=== PATIENT | female | born 1995 | race Caucasian/White ===

== ENCOUNTER 2018-04-07 13:55 | Inpatient (IN) | payer BC, OTHER ==
[~2018-04-07] VITALS: Ht 167.6 cm; Wt 79.0 kg
[2018-04-07] VITALS (41 sets, daily range): BP systolic 96–123; BP diastolic 56–86; PULSE 79–106; RESP 17; TEMP 98.3; O2SAT 97–100
[~2018-04-07 13:55] MED LIST: ATOM25 PO; FLUO-1 PO
[2018-04-07] MEDS ORDERED: LACTATED RINGER'S 1000 ML INJ 1,000 ML IV PRN (14:32)
--- NOTE | 2018-04-07 14:39 | HHI.HP ---
HPI Chief Complaint Cindy sanches Date Seen: Apr 07, 2018 Time Seen: 14:33 Travel History International Travel<30 Days: No Contact w/Intl Traveler<30Days: No Known Affected Area: No History of Present Illness HPI Patient is 22-year-old white female G 4 P3 36--37 weeks who presents with spontaneous rupture the membranes. Patient has gross rupture of clear fluid in the OB ED and amni sure is positive. Patient NST is reactive and she is omid irregularly and mildly at this time. Patient gets her care in [place] and was here in town visiting relatives Weeks Gestation: 36 Para: 3 : 4 History Obstetric History Obstetric History 3 vaginal deliveries at term Social History Alcohol Use: No Tobacco Use: No Substance Abuse: No Allergies-Medications (Allergen,Severity, Reaction): Coded Allergies: erythromycin base (Unverified Allergy, Mild, 06/12/17) Home Meds Reported Medications Fluoxetine Hcl (Prozac) 10 Mg Cap, 10 MG PO DAILY 03/14/11 Atomoxetine Hydrochloride (Strattera) 25 Mg Cap, 25 MG PO DAILY 03/10/11 Review of Systems General / Constitutional: No: Fever, Weight Gain, Chills, Other Eyes: No: Diploplia, Blurred Vision, Visual changes, Pain, Photophobia HENT: No: Headaches, Vertigo, Lightheadedness Cardiovascular: No: Irregular Rhythm, Chest Pain or Discomfort, Palpitations, Tachycardia, Syncope, Varicosities, Edema, Cyanosis Respiratory: No: Cough, Short of Breath, Other Gastrointestinal: No: Nausea, Vomiting, Diarrhea Genitourinary: No: Decreased Urinary Output, Oliguria Musculoskeletal: No: Limited ROM, Weakness, Cramping, Edema, Pain Skin: No Rash, No Itching, No Dryness, No Lumps, No Change in Pigmentation, No Change in Nails, No Alopecia, No Lesions Neurologic: No: Weakness, Dizziness, Syncope, Focal Abnormalities, Coordination Problem, Headache, Slurred Speech, Seizures Psychiatric: No: Depression, Suicidal Ideations, Homicidal Ideation Endocrine: No: Heat Intolerance, Cold Intolerance, Polydipsia, Polyuria, Other Physical Exam Narrative GENERAL: Well-nourished, well-developed patient. SKIN: Warm and dry. HEAD: Normocephalic and atraumatic. EYES: No scleral icterus. No injection or drainage. ENT: No nasal drainage noted. Mucous membranes pink. Airway patent. NECK: Supple, trachea midline. No JVD. CARDIOVASCULAR: Regular rate and rhythm without murmurs, gallops, or rubs. RESPIRATORY: Breath sounds equal bilaterally. No accessory muscle use. BREASTS: Bilateral exam showed no masses , no retractions, no nipple discharge. ABDOMEN/GI: Abdomen soft, non-tender, bowel sounds present, no rebound, no guarding Gravid to [-36] weeks size Fundal Height: [36-] GENITOURINARY: External Genitalia: intact and normal in appearance Cervix: [1-] Dilatation:3 Effacement: [70-] Station: [0-] Presentation: [vtx-] Membranes: [ ruptured] Uterine Contractions: [irreg-] FHT's: Category: [1-] Baseline: [-133] Reactive: [-R] Variability: [mod-] Decels: [-0] EXTREMITIES: No cyanosis or edema. BACK: Nontender without obvious deformity. No CVA tenderness. NEUROLOGICAL: Awake and alert. Motor and sensory grossly within normal limits. Five out of 5 muscle strength in all muscle groups. Normal speech. Caprini VTE Risk Assessment Caprini VTE Risk Assessment: No/Low Risk (score <= 1) Caprini Risk Assessment Model Point Value = 1 Point Value = 2 Point Value = 3 Point Value = 5 Age 41-60 Minor surgery BMI > 25 kg/m2 Swollen legs Varicose veins or History of unexplained or recurrent spontaneous Oral contraceptives or hormone replacement Sepsis (< 1 month) Serious lung disease, including pneumonia (< 1 month) Abnormal pulmonary function Acute myocardial infarction Congestive heart failure (< 1 month) History of inflammatory bowel disease Medical patient at bed rest Age 61-74 Arthroscopic surgery Major open surgery (> 45 min) Laparoscopic surgery (> 45 min) Malignancy Confined to bed (> 72 hours) Immobilizing plaster cast Central venous access Age >= 75 History of VTE Family history of VTE Factor V Leiden Prothrombin [id number] Lupus anticoagulant Anticardiolipin antibodies Elevated serum homocysteine Heparin-induced thrombocytopenia Other congenital or acquired thrombophilia Stroke (< 1 month) Elective arthroplasty Hip, pelvis, or leg fracture Acute spinal cord injury (< 1 month) Prophylaxis Regimen Total Risk Factor Score Risk Level Prophylaxis Regimen 0-1 Low Early ambulation 2 Moderate Order ONE of the following: *Sequential Compression Device (SCD) *Heparin 5000 units SQ BID 3-4 Higher Order ONE of the following medications: *Heparin 5000 units SQ TID *Enoxaparin/Lovenox 40 mg SQ daily (WT < 150 kg, CrCl > 30 mL/min) *Enoxaparin/Lovenox 30 mg SQ daily (WT < 150 kg, CrCl > 10-29 mL/min) *Enoxaparin/Lovenox 30 mg SQ BID (WT < 150 kg, CrCl > 30 mL/min) AND/OR *Sequential Compression Device (SCD) 5 or more Highest Order ONE of the following medications: *Heparin 5000 units SQ TID (Preferred with Epidurals) *Enoxaparin/Lovenox 40 mg SQ daily (WT < 150 kg, CrCl > 30 mL/min) *Enoxaparin/Lovenox 30 mg SQ daily (WT < 150 kg, CrCl > 10-29 mL/min) *Enoxaparin/Lovenox 30 mg SQ BID (WT < 150 kg, CrCl > 30 mL/min) AND *Sequential Compression Device (SCD) Data Data Orders Orders Admit To Inpatient (04/07/18 ) Vital Signs (Adult) .Per protocol (04/07/18 14:32) Heart (04/07/18 14:32) Amnioinfusion (04/07/18 14:32) Urinary Catheter Management .ONCE (04/07/18 14:32) Diet Liquid (04/07/18 Dinner) Lactated Ringer's 1000 Ml Inj (Lr 1000 M (04/07/18 14:32) Lactated Ringer's 1000 Ml Inj (Lr 1000 M (04/07/18 14:32) Sodium Chlorid 0.9% 500 Ml Inj (Ns 500 M (04/07/18 14:45) Sodium Chlor 0.9% 1000 Ml Inj (Ns 1000 M (04/07/18 14:52) Lidocaine 1% Inj (50 Ml) (Xylocaine 1% I (04/07/18 14:45) Citric Acid-Sodium Citrate Liq (Bicitra (04/07/18 14:45) Fentanyl Inj (Fentanyl Inj) (04/07/18 14:45) Fentanyl Inj (Fentanyl Inj) (04/07/18 14:45) Penicillin G Potassium Inj (Pfizerpen-G (04/07/18 14:45) Penicillin G Potassium Inj (Pfizerpen-G (04/07/18 18:45) Complete Blood Count With Diff (04/07/18 14:32) Hold Clot (04/07/18 14:32) Abo/Rh Blood Type (04/07/18 14:32) Urinalysis - C+S If Indicated (04/07/18 14:32) Drug Screen, Random Urine (04/07/18 14:32) Ob/Psych Drug Screen, Urine (04/07/18 14:32) Resp Oxygen Non Rebreathe Mask (04/07/18 ) ^ Epidural / Intrathecal Infus (04/07/18 14:32) Oxytocin 30 Units-500ml Premix (Pitocin (04/07/18 14:45) Lidocaine 1% Inj (50 Ml) (Xylocaine 1% I (04/07/18 14:45) Light Mineral Oil (Muri-Lube Oil) (04/07/18 14:45) Labs amnisure pos GBS cult not done Assessment/Plan Assessment and Plan Impression--36-37 week SROM reactive NST Plan-mid to labor and delivery, augment labor, anticipate vaginal delivery, provide IV penicillin due to unknown GBS status and prematurity Jaden Madrid II, MD Apr 07, 2018 14:39
[2018-04-07] MEDS ORDERED: LIDOCAINE HCL 1% 50 ML VIAL INFIL PRN (14:45)
[2018-04-07] MEDS ORDERED: SODIUM CHLORID 0.9% 500 ML INJ 500 ML IV PRN (14:45)
[2018-04-07] MEDS ORDERED: OXYTOCIN 30 UNITS-500ML PREMIX 500 ML IV PRN (14:45)
[2018-04-07] MEDS ORDERED: CITRIC ACID-SODIUM CITRATE LIQ 30 ML UDC PO SCH (14:45)
[2018-04-07] MEDS ORDERED: PENICILLIN G POTASSIUM INJ 5,000,000 UNITS in SODIUM CHLORIDE 0.9% INJ 100 ML IV ONE (14:45)
[2018-04-07] MEDS ORDERED: LIDOCAINE HCL 1% 50 ML VIAL I-DERMAL PRN (14:45)
[2018-04-07] MEDS ORDERED: MINERAL OIL 10 ML VIAL TOPICAL PRN (14:45)
[2018-04-07] MEDS ORDERED: OXYTOCIN 30 UNITS-500ML PREMIX 500 ML IV ONE (14:45)
[2018-04-07] MEDS ORDERED: SODIUM CHLOR 0.9% 1000 ML INJ 1,000 ML IV PRN (14:52)
[2018-04-07 15:20] LABS: BILIRUBIN, URINE NEG (NEG); BLOOD, URINE NEG (NEG); GLUCOSE,URINE NEG (NEG); KETONE, URINE 10 mg/dL (NEG); MUCUS URINE FEW /lpf (OCC); NITRITE,URINE NEG (NEG); SQUAMOUS EPITHELIAL CELL URINE 5 /hpf (0-5); URINE COLOR YELLOW (YELLW/STRAW); URINE LEUKOCYTE ESTERASE TRACE (NEG)
[2018-04-07 15:21] LABS: AUTOMATED NEUTROPHIL # 7.9 TH/MM3 (1.8-7.7); BASOPHIL % 0.2 % (0.0-2.0); EOSINOPHIL % 0.3 % (0.0-4.0); HEMATOCRIT 36.4 % (35.0-46.0); HEMOGLOBIN 12.7 GM/DL (11.6-15.3); LYMPH % 15.4 % (9.0-44.0); LYMPHOCYTE # 1.6 TH/MM3 (1.0-4.8); MEAN CELL VOLUME 90.1 FL (80.0-100.0); MEAN CORPUSCULAR HEMOGLOBIN 31.4 PG (27.0-34.0); MEAN CORPUSCULAR HGB CONC 34.9 % (32.0-36.0); MEAN PLATELET VOLUME 8.3 FL (7.0-11.0); MONO % 6.9 % (0.0-8.0); MONOCYTE # 0.7 TH/MM3 (0-0.9); NEUT % 77.2 % (16.0-70.0); PLATELET COUNT 249 TH/MM3 (150-450); RED BLOOD COUNT 4.05 MIL/MM3 (4.00-5.30); RED CELL DISTRIBUTION WIDTH 12.8 % (11.6-17.2); WHITE BLOOD COUNT 10.2 TH/MM3 (4.0-11.0)
[2018-04-07] MEDS ORDERED: PREN29TA PO (15:38)
[2018-04-07] MEDS ORDERED: MEASLES, MUMPS, RUBELLA VACCINE 0.5 ML VIAL SQ ONE (16:00)
[2018-04-07] MEDS ORDERED: DIPHTH/TETANUS/ACEL PERTUSSIS (BOOSTER) 0.5 ML VIAL/PFS IM ONE (16:00)
[2018-04-07] MEDS: LACTATED RINGER'S 1000 ML INJ 1,000 ML IV SCH (17:13)
[2018-04-07] MEDS ORDERED: fentaNYL 2MCG-BUPIV 0.125% INJ 150 ML EPIDURAL ONE (17:57)
[2018-04-07] MEDS ORDERED: PENICILLIN G POTASSIUM INJ 2,500,000 UNITS in SODIUM CHLORIDE 0.9% INJ 100 ML IV SCH (18:45)
[2018-04-07] MEDS ORDERED: ePHEDrine/NS 25 MG/5 ML SYRINGE ONE (18:50)
[2018-04-07] MEDS: PENICILLIN G POTASSIUM INJ 2,500,000 UNITS in SODIUM CHLORIDE 0.9% INJ 100 ML IV SCH (19:35)
[2018-04-07] MEDS ORDERED: DO NOT ADMINISTER ANTICOAGULANTS PRN (20:15)
[2018-04-07] MEDS ORDERED: fentaNYL 2MCG-BUPIV 0.125% 150 ML EPIDURAL PRN (20:15)
[2018-04-07] MEDS ORDERED: NO SYSTEM NARCOTICS PRN (20:15)
[2018-04-07] MEDS ORDERED: ePHEDrine/NS 25 MG/5 ML SYRINGE IV PUSH PRN (20:15)
[2018-04-07] MEDS: ACETAMINOPHEN 325 MG TAB PO PRN (20:22)
[2018-04-07] MEDS ORDERED: LIDOCAINE HCL 1% PF 30 ML VIAL ONE (20:46)
--- NOTE | 2018-04-07 20:54 | PD.OB.DELI ---
Weeks gestation: 36 Anesthesia: Epidural Episiotomy: None Vaginal Delivery: Normal Presentation: Occiput anterior Nuchal Cord: None Delayed cord clamping (45 sec): Yes Delivery date: Apr 07, 2018 Delivery time: 20:48 One Minute : 9 Five Minute : 9 Weight: 3165 gm Placenta: Spontaneous delivery, Intact Laceration: No lacerations Estimated blood loss: 100 cc Jaden Madrid II, MD Apr 07, 2018 20:54
[2018-04-07] MEDS ORDERED: OXYTOCIN 30 UNITS-500ML PREMIX 500 ML IV SCH (21:00)
[2018-04-07] MEDS ORDERED: ONDANSETRON ODT 4 MG TAB PO PRN (21:00)
[2018-04-07] MEDS ORDERED: SODIUM CHLORIDE 0.9% FLUSH 10 ML FLUSH IV FLUSH PRN (21:00)
[2018-04-07] MEDS ORDERED: ALUMINUM/MAGNESIUM/SIMETH 30 ML CUP PO PRN (21:00)
[2018-04-07] MEDS ORDERED: DOCUSATE SODIUM 50 MG/SENNA 8.6 MG TAB PO PRN (21:00)
[2018-04-07] MEDS ORDERED: WITCH HAZEL 50%/GLYCERIN 12.5% 40 PAD JAR TOPICAL PRN (21:00)
[2018-04-07] MEDS ORDERED: ACETAMINOPHEN 325 MG TAB PO PRN (21:00)
[2018-04-07] MEDS ORDERED: SODIUM CHLORIDE 0.9% FLUSH 10 ML FLUSH IV FLUSH SCH (21:00)
[2018-04-07] MEDS ORDERED: BENZOCAINE 20% TOPICAL SPRAY 60 ML CAN TOPICAL PRN (21:00)
[2018-04-07] MEDS ORDERED: ZOLPIDEM TARTRATE 5 MG TAB PO PRN (21:00)
[2018-04-08 03:45] VITALS: BP 114/69; PULSE 68; RESP 18; TEMP 98
[2018-04-08] MEDS: IBUPROFEN 800 MG TAB PO PRN ×3 (03:54→20:48)
[2018-04-08] MEDS: ACETAMINOPHEN 325 MG TAB PO PRN (03:54)
--- NOTE | 2018-04-08 07:23 | HHI.OB ---
Subjective Post Day: 1 Remarks day # 1. AFVSS overnight. Pain well-controlled. She has passed some blood clots but is stable now. Denies dysuria. No breast tenderness. She is feeding the baby via breast and bottle. Appetite good. No nausea or vomiting. Positive flatus. Negative bowel movement. Ambulating well. Denies calf pain, shortness of breath, or chest pain. Otherwise, she is doing well this morning and has no other complaints. Objective Objective Remarks GENERAL: Well-nourished, well-developed patient. CARDIOVASCULAR: Regular rate and rhythm without murmurs, gallops, or rubs. RESPIRATORY: Breath sounds equal bilaterally. No accessory muscle use. ABDOMEN/GI: Abdomen soft, non-tender. Fundus: Firm, non-tender below umbilicus. GENITOURINARY: Light to moderate bleeding. EXTREMITIES: No cyanosis or edema, non-tender, without signs of DVT. Medications and IVs Current Medications Medications (Trade) Dose Ordered Sig/Jacquie Route Start Time Stop Time Status Last Admin Lactated Ringer's 1,000 ml @ 125 mls/hr Q8H IV 04/07/18 14:32 04/07/18 17:13 Lactated Ringer's 1,000 ml @ 3,000 mls/hr Q20M PRN IV 04/07/18 14:32 Sodium Chloride 1,000 ml @ 100 mls/hr Q10H PRN IV 04/07/18 14:52 (Xylocaine 1% Inj (50 ml)) 0.1 ml UNSCH X1 PRN I-DERMAL 04/07/18 14:45 04/10/18 14:44 (Bicitra Liq) 30 ml MEDICAL OFFICE SUPERVISOR PO 04/07/18 14:45 04/11/18 14:44 (fentaNYL INJ) 50 mcg Q1H PRN IV PUSH 04/07/18 14:45 (fentaNYL INJ) 100 mcg Q1H PRN IV PUSH 04/07/18 14:45 (Xylocaine 1% Inj (50 ml)) 10 ml UNSCH X1 PRN INFIL 04/07/18 14:45 04/09/18 14:44 (Muri-Lube Oil) 10 ml UNSCH PRN TOPICAL 04/07/18 14:45 Oxytocin 500 ml @ 1 mls/hr TITRATE PRN IV 04/07/18 14:45 04/07/18 15:24 Penicillin G Potassium [id number] units/Sodium Chloride 100 ml @ 200 mls/hr Q4H IV 04/07/18 19:00 04/07/18 19:35 (Tylenol) 650 mg Q4H PRN PO 04/07/18 20:15 04/08/18 03:54 ([facility] Nursing Information) No systemic narcotics to be given except... UNSCH PRN .XX 04/07/18 20:15 04/08/18 20:14 ([facility] Nursing Information) DO NOT ADMINISTER ANY ANTICOAGUL... UNSCH PRN .XX 04/07/18 20:15 04/08/18 20:14 Fentanyl/ Bupivacaine/ Sodium Chlor 150 ml @ 0 mls/hr TITRATE PRN EPIDURAL 04/07/18 20:15 (ePHEDrine/NS 25 MG/5 ML SYR) 10 mg UNSCH PRN IV PUSH 04/07/18 20:15 04/08/18 20:14 (NS Flush) 2 ml BID IV FLUSH 04/07/18 21:00 (NS Flush) 2 ml UNSCH PRN IV FLUSH 04/07/18 21:00 (Tylenol) 650 mg Q4H PRN PO 04/07/18 21:00 (Motrin) 800 mg Q8H PRN PO 04/07/18 21:00 04/08/18 03:54 (Percocet 5-325 Mg) 1 tab Q4H PRN PO 04/07/18 21:00 (Americaine 20% Top Spr) 1 spray Q4H PRN TOPICAL 04/07/18 21:00 (Tucks Pads) 1 applic QID PRN TOPICAL 04/07/18 21:00 (Ely-Colace) 2 tab Q12H PRN PO 04/07/18 21:00 (Ambien) 5 mg HS PRN PO 04/07/18 21:00 (Mag-Al Plus Susp Liq) 15 ml Q8H PRN PO 04/07/18 21:00 (Zofran Odt) 4 mg Q6H PRN PO 04/07/18 21:00 Assessment/Plan Assessment and Plan 22 y/o female who is PPD#1 s/p -Continue routine care -Motrin and Percocet PRN for pain -Pericolase PRN for constipation -Encouraged OOB. Advised pelvic rest for 6 wks -Will need a follow-up appointment within 6 wks for post- check -Re: ctrl - undecided, she would discuss with her OB provider at her visit in [address] Madrid Discharge Planning Discharge home in 1-2 days Rosa Batista MD R2 Apr 08, 2018 7:23 am
[2018-04-08] MEDS: oxyCODONE/ACETAMINOPHEN 5 MG/325 MG TAB PO PRN ×3 (08:04→20:49)
[2018-04-08 08:15] VITALS: BP 106/68; PULSE 62; RESP 16; TEMP 97.8
[2018-04-08] MEDS: PENICILLIN G POTASSIUM INJ 2,500,000 UNITS in SODIUM CHLORIDE 0.9% INJ 100 ML IV SCH ×2 (15:48→18:47)
[2018-04-08] MEDS: LACTATED RINGER'S 1000 ML INJ 1,000 ML IV SCH (15:48)
[2018-04-08 20:00] VITALS: BP 105/70; PULSE 63; RESP 18; TEMP 98.1
[2018-04-09 08:00] VITALS: BP 105/67; PULSE 73; RESP 20; TEMP 98.1
[2018-04-09] MEDS ORDERED: medroxyPROGESTERone ACETATE SUSP 150 MG/ML SYRINGE IM ONE (09:15)
--- NOTE | 2018-04-09 09:18 | HHI.OB ---
Subjective Remarks Patient is a 22-year-old delivered at 36 weeks and 5 days. Patient is day 2 after . Patient's pain is well-controlled. Patient reports eating and drinking without any nausea or vomiting. Patient reports minimal bleeding. Patient has passed gas and bowel movements. Patient is walking without lower extremity pain or shortness of breath. Patient reports desire for contraception and breast-feeding. Objective Objective Remarks GENERAL: Well-nourished, well-developed patient. CARDIOVASCULAR: Regular rate and rhythm without murmurs, gallops, or rubs. RESPIRATORY: Breath sounds equal bilaterally. No accessory muscle use. ABDOMEN/GI: Abdomen soft, non-tender. Fundus: Firm, non-tender below umbilicus. GENITOURINARY: Light to moderate bleeding. EXTREMITIES: No cyanosis or edema, non-tender, without signs of DVT. Medications and IVs Current Medications Medications (Trade) Dose Ordered Sig/Jacquie Route Start Time Stop Time Status Last Admin Lactated Ringer's 1,000 ml @ 125 mls/hr Q8H IV 04/07/18 14:32 04/07/18 17:13 Lactated Ringer's 1,000 ml @ 3,000 mls/hr Q20M PRN IV 04/07/18 14:32 Sodium Chloride 1,000 ml @ 100 mls/hr Q10H PRN IV 04/07/18 14:52 (Xylocaine 1% Inj (50 ml)) 0.1 ml UNSCH X1 PRN I-DERMAL 04/07/18 14:45 04/10/18 14:44 (Bicitra Liq) 30 ml DIRECT CARE SUPERVISOR PO 04/07/18 14:45 04/11/18 14:44 (fentaNYL INJ) 50 mcg Q1H PRN IV PUSH 04/07/18 14:45 (fentaNYL INJ) 100 mcg Q1H PRN IV PUSH 04/07/18 14:45 (Xylocaine 1% Inj (50 ml)) 10 ml UNSCH X1 PRN INFIL 04/07/18 14:45 04/09/18 14:44 (Muri-Lube Oil) 10 ml UNSCH PRN TOPICAL 04/07/18 14:45 Oxytocin 500 ml @ 1 mls/hr TITRATE PRN IV 04/07/18 14:45 04/07/18 15:24 Penicillin G Potassium [id number] units/Sodium Chloride 100 ml @ 200 mls/hr Q4H IV 04/07/18 19:00 04/07/18 19:35 (Tylenol) 650 mg Q4H PRN PO 04/07/18 20:15 04/08/18 03:54 Fentanyl/ Bupivacaine/ Sodium Chlor 150 ml @ 0 mls/hr TITRATE PRN EPIDURAL 04/07/18 20:15 (NS Flush) 2 ml BID IV FLUSH 04/07/18 21:00 04/08/18 09:27 (NS Flush) 2 ml UNSCH PRN IV FLUSH 04/07/18 21:00 (Tylenol) 650 mg Q4H PRN PO 04/07/18 21:00 (Motrin) 800 mg Q8H PRN PO 04/07/18 21:00 04/08/18 20:48 (Percocet 5-325 Mg) 1 tab Q4H PRN PO 04/07/18 21:00 04/08/18 20:49 (Americaine 20% Top Spr) 1 spray Q4H PRN TOPICAL 04/07/18 21:00 (Tucks Pads) 1 applic QID PRN TOPICAL 04/07/18 21:00 (Ely-Colace) 2 tab Q12H PRN PO 04/07/18 21:00 04/08/18 20:48 (Ambien) 5 mg HS PRN PO 04/07/18 21:00 (Mag-Al Plus Susp Liq) 15 ml Q8H PRN PO 04/07/18 21:00 (Zofran Odt) 4 mg Q6H PRN PO 04/07/18 21:00 Assessment/Plan Assessment and Plan 22 y/o female who is PPD#2 s/p -Continue routine care -Motrin PRN for pain -Pericolase PRN for constipation -Encouraged OOB. Advised pelvic rest for 6 wks -Will need a follow-up appointment within 6 wks for post- check -Re: ctrl -desires Depo-Provera shot -Due to little care, ordering labs prior to discharge Discharge Planning Discharge today Diogenes Morrow MD R1 Apr 09, 2018 09:18
[2018-04-09] MEDS ORDERED: PERI PO (09:27)
[2018-04-09] MEDS ORDERED: IBUP1TAB7 PO (09:27)
--- NOTE | 2018-04-09 09:28 | HHI.DCPOC ---
Discharge Care Plan Diagnosis: (1) Vaginal delivery Report Symptoms to Your Doctor -Temperature above 100.5 degrees -Redness, of incision or excessive or foul smelling drainage -Unusual pain or calf pain -Increased vaginal bleeding -Painful or difficulty urinating -Feelings of extreme sadness or anxiety after 2 weeks Goals to Promote Your Health * To prevent worsening of your condition and complications * To maintain your health at the optimal level Directions to Meet Your Goals Take your medications as prescribed Follow your dietary instruction Follow activity as directed Ensure plenty of rest for recovery Drink fluids for hydration Keep your appointments as scheduled Take your immunizations and boosters as scheduled If your symptoms worsen call your PCP, if no PCP go to Urgent Care Center or Emergency Room Smoking is Dangerous to Your Health. Avoid second hand smoke Call the 24-hour crisis hotline for domestic abuse at Rosa Batista MD R2 Apr 09, 2018 09:28
[2018-04-09] MEDS: IBUPROFEN 800 MG TAB PO PRN (09:57)
[2018-04-09] MEDS: ACETAMINOPHEN 325 MG TAB PO PRN (09:58)
[2018-04-09] MEDS: oxyCODONE/ACETAMINOPHEN 5 MG/325 MG TAB PO PRN (14:38)
== END 2018-04-09 18:13 | disposition home or self-care (01) | DRG 775 ==
LOC: HOBED 13:55 → H2EB 14:39 → H1EA 04-08 00:02
PROVIDERS: ADMIT Obstetrics & Gynecology Maternal & Fetal Medicine; ATTEND Obstetrics & Gynecology Maternal & Fetal Medicine
PROC: 10E0XZZ Delivery of Products of Conception, External Approach (ICD-10-PCS; principal; 2018-04-07)
PROC: 00HU33Z Insertion of Infusion Device into Spinal Canal, Percutaneous Approach (ICD-10-PCS; 2018-04-07)
PROC: 3E0R3BZ Introduction of Anesthetic Agent into Spinal Canal, Percutaneous Approach (ICD-10-PCS; 2018-04-07)
DX: O60.14X0 Preterm labor third trimester with preterm delivery third trimester, not applicable or unspecified (principal); Z30.09 Encounter for other general counseling and advice on contraception; Z3A.36 36 weeks gestation of pregnancy; Z37.0 Single live birth
CPT/HCPCS: 59025; 80307; 81001; 84112; 85025; 85461; 86592; 86762; 86850; 86900; 86901; 87389; 90384; 90715; G0475; J1050; J2540; J2590; J2790; J7120